=== PATIENT | male | born 1985 | race Caucasian/White ===

== ENCOUNTER 2024-09-30 11:11 | Emergency (ER) | payer SELFPAY ==
[2024-09-30] MEDS ORDERED: HYDROcodone/Acetaminophen 5/325 mg Tablet ONE (11:29)
[2024-09-30] MEDS ORDERED: Boostrix 0.5 ML (Tdap) VIAL (>/=7 yrs of age) ONE (11:29)
[2024-09-30] MEDS ORDERED: CEFAZOLIN 2 GM VIAL ONE (11:52)
== END 2024-09-30 13:00 | disposition home or self-care (01) ==
LOC: MADERS 11:11
DX: S62.631A Displaced fracture of distal phalanx of left index finger, initial encounter for closed fracture (principal); S62.633A Displaced fracture of distal phalanx of left middle finger, initial encounter for closed fracture; S62.635A Displaced fracture of distal phalanx of left ring finger, initial encounter for closed fracture; K21.9 Gastro-esophageal reflux disease without esophagitis; Z23 Encounter for immunization; Z55.6 Problems related to health literacy; W22.8XXA Striking against or struck by other objects, initial encounter
CPT/HCPCS: 11740; 90471; 90715; 96365